=== PATIENT | male | born 1970 | race Hispanic/Latino ===

== ENCOUNTER 2020-03-15 08:05 | Outpatient (CLI) | payer OTHER ==
--- NOTE | 2020-03-15 08:56 | XRay Report ---
LUMBAR SPINE 3 VIEWS INDICATION / CLINICAL INFORMATION: PERIPHERAL NEURUPATHY AFFECTING HANDS/FEET,LOWER BACK,PINCHED NER. COMPARISON: None available. FINDINGS: VERTEBRAE: 5 lumbar type vertebral bodies. No acute fracture. Mild retrolisthesis of the L1-L2 level. DISC SPACES / FACET JOINTS:Loss of intervertebral disc space height is noted at multiple levels most prominent at L1-L2 and L2-L3. Prominent facet arthropathy is noted at L4-L5 and L5-S1 with bilateral neural foraminal stenosis. PARASPINAL SOFT TISSUES:Vascular calcifications. ADDITIONAL FINDINGS: None. Signer Name: Elfego Arguello MD Signed: 03/15/2020 8:52 AM Workstation Name: [id number]
== END 2020-03-15 08:06 | disposition home or self-care (01) ==
LOC: XRAY 08:05
PROVIDERS: ATTEND Internal Medicine
DX: M47.817 Spondylosis without myelopathy or radiculopathy, lumbosacral region (principal); M48.07 Spinal stenosis, lumbosacral region; G62.89 Other specified polyneuropathies; G58.9 Mononeuropathy, unspecified
CPT/HCPCS: 72100

== ENCOUNTER 2020-05-17 09:03 | Outpatient (CLI) | payer OTHER ==
--- NOTE | 2020-05-17 10:12 | XRay Report ---
PELVIS AND HIPS 2 VIEWS INDICATION / CLINICAL INFORMATION: PERIPHERAL NEUROPATHY. COMPARISON: None available. FINDINGS: Mild degenerative change in both hips. No other significant skeletal abnormality Signer Name: David Harris MD FACMayco Signed: 05/17/2020 10:08 AM Workstation Name: [id number]
--- NOTE | 2020-05-17 10:12 | XRay Report ---
CERVICAL SPINE 4 VIEWS INDICATION / CLINICAL INFORMATION: PERIPHERAL NEUROPATHY. COMPARISON: None available. FINDINGS: Marked narrowing or fusion of the C6-7 disc space. Mild degenerative change at C5-6. No other signifi cant skeletal abnormality. Alignment is normal. Signer Name: David Harris MD FACMayco Signed: 05/17/2020 10:08 AM Workstation Name: [id number]
--- NOTE | 2020-05-17 10:14 | XRay Report ---
RIGHT HAND 2 VIEW(S) INDICATION / CLINICAL INFORMATION: PERIPHERAL NEUROPATHY COMPARISON: None available. FINDINGS: BONES / JOINT(S): No acute fracture or subluxation. Mild arthrosis throughout the IP joints. SOFT TISSUES: No significant abnormality. ADDITIONAL FINDINGS: None. Signer Name: Elfego Arguello MD Signed: 05/17/2020 10:10 AM Workstation Name: [id number]
== END 2020-05-17 09:04 | disposition home or self-care (01) ==
LOC: XRAY 09:03
PROVIDERS: ATTEND Internal Medicine
DX: M16.0 Bilateral primary osteoarthritis of hip (principal); M47.812 Spondylosis without myelopathy or radiculopathy, cervical region
CPT/HCPCS: 72040; 73521